=== PATIENT | female | born 1935 | race Caucasian/White ===

== ENCOUNTER 2020-07-13 00:40 | Inpatient (IN) | payer OTHER ==
[~2020-07-13] VITALS: Ht 154.9 cm; Wt 75.7 kg
--- NOTE | 2020-07-13 00:45 | NUR ---
PT BIBRA FROM HOME C/O LEFT SIDE CHEST PAIN RADIATING TO L UPPER EXT AND L JAW ARMATURE REWINDER. NOTED HYPERTENSION, MD AWARE. PT ALSO C/O WEAKNESS. PT AWAKE, JAPANESE SPEAKING. RESPIRATIONS EVEN AND UNLABORED. NO ACUTE DISTRESS NOTED AT THIS TIME. PLACED IN GOWN AND ON CONTINUOUS SWISS TYPE SCREW MACHINE OPERATOR AND PULSE OX, WILL CONTINUE TO MONITOR
--- NOTE | 2020-07-13 00:47 | NUR ---
MD AT BEDSIDE FOR EVALUATION
--- NOTE | 2020-07-13 00:55 | NUR ---
IV INITIATED LAC 18G. LABS DRAWN FROM SITE. CLOUD OPERATIONS ENGINEER AT BEDSIDE FOR COLLECTION. IV INTACT AND PATENT, PLACED ON SALINE LOCK
[2020-07-13] MEDS ORDERED: ASPIRIN 325 MG TABLET PO ONE (01:00)
[2020-07-13] MEDS ORDERED: hydrALAZINE HCL IV 20 MG VIAL IV ONE (01:00)
--- NOTE | 2020-07-13 01:08 | NUR ---
PT AMBULATORY TO RESTROOM WITH STEADY GAIT
[2020-07-13] MEDS ORDERED: ASPIRIN 325 MG TABLET ONE (01:09)
[2020-07-13] MEDS ORDERED: hydrALAZINE HCL IV 20 MG VIAL ONE (01:09)
--- NOTE | 2020-07-13 01:19 | NUR ---
PER VERBAL MD ORDER, WILL HOLD HYDRALAZINE 10MG IV AT THIS TIME
[2020-07-13 01:35] LABS: CALCIUM, SERUM 9.2 mg/dL (8.5-10.1); CREATININE 0.9 mg/dL (0.6-1.3); POTASSIUM 3.6 mmol/L (3.5-5.1)
[2020-07-13 01:36] LABS: BASOPHILS # (AUTO) 0.3 /CMM (0.0-0.2); BASOPHILS % (AUTO) 2.8 % (0.0-2.0); EOSINOPHILS % (AUTO) 1.6 % (0.0-6.0); HEMATOCRIT 43 % (33-45); HEMOGLOBIN 14.3 g/dL (11.5-14.8); LYMPHOCYTES # (AUTO) 1.4 /CMM (0.8-4.8); LYMPHOCYTES % (AUTO) 15.4 % (20.0-44.0); MEAN CORPUSCULAR HGB CONC 34 g/dl (31.0-36.0); MEAN CORPUSCULAR VOLUME 82 fL (82-100); MONOCYTES # (AUTO) 0.6 /CMM (0.1-1.30); MONOCYTES % (AUTO) 6.4 % (2.0-12.0); NEUTROPHILS # (AUTO) 6.8 /CMM (1.8-8.9); NEUTROPHILS % (AUTO) 73.8 % (43.0-81.0); PLATELET COUNT (AUTO) 204 /CMM (150-450); RED BLOOD CELL COUNT(AUTO) 5.18 MIL/uL (4.0-5.2); WHITE BLOOD COUNT (AUTO) 9.2 K/uL (4.3-11.0)
[2020-07-13 01:49] LABS: ALBUMIN 3.9 g/dL (3.4-5.0); BILIRUBIN,DIRECT 0.1 mg/dL (0.0-0.2); BILIRUBIN,TOTAL 0.5 mg/dL (0.2-1.0); TOTAL PROTEIN, SERUM 8.1 g/dL (6.4-8.2)
--- NOTE | 2020-07-13 02:31 | NUR ---
REPORT GIVEN TO ERIKA SURESH FOR MEGA
[2020-07-13] MEDS ORDERED: MAG HYDROX/AL HYDROX/SIMETH 30 ML UDC PO PRN (04:00)
[2020-07-13] MEDS ORDERED: ACETAMINOPHEN 325 MG TABLET PO PRN (04:00)
[2020-07-13] MEDS ORDERED: MAGNESIUM HYDROXIDE 30 ML UDC PO PRN (04:00)
[2020-07-13] MEDS ORDERED: Z GUARD REMEDY 2 OZ OINT TP PRN (04:00)
[2020-07-13] MEDS ORDERED: MORPHINE SULFATE INJ 2 MG/ML DISP.SYRIN IV PRN (04:00)
[2020-07-13] MEDS ORDERED: HYDROCODONE/APAP 5/325MG TABLET PO PRN (04:00)
[2020-07-13] MEDS ORDERED: ENOXAPARIN SODIUM 80 MG/0.8 ML DISP.SYRIN SQ ONE (04:00)
[2020-07-13] MEDS ORDERED: NITROGLYCERIN 0.4 MG/TAB BOTTLE SL PRN (04:00)
[2020-07-13] MEDS ORDERED: ZOLPIDEM TARTRATE 5 MG TABLET PO PRN (04:00)
[2020-07-13] MEDS ORDERED: ONDANSETRON HCL/PF 4 MG/2 ML VIAL IVP PRN (04:00)
[2020-07-13 04:05] VITALS: BP 161/83
--- NOTE | 2020-07-13 04:09 | NUR ---
PT TRANSFERRED PER ACLS PROTOCOL
--- NOTE | 2020-07-13 04:10 | NUR ---
SAVE ALL OPERATORSAP BUSINESS OBJECTS CONSULTANT NOTES RECEIVED REPORT FROM NIYAH JAMES. PATIENT TRANSFERRED FROM ER TO TELE; PATIENT ABLE TO AMBULATE FROM [facility] TO BED. PATIENT A/OX4; ICELANDIC SPEAKING; ABLE TO MAKE NEEDS KNOWN. ON ROOM AIR AND TOLERATING WELL WITH NO SOB. EXTERNAL STEAM SETTER READS NSR AND HR AT 70'S. IV LAC #18 S/L; PATENT AND INTACT. PATIENT DENIES PAIN AT THIS TIME. ALL BELONGINGS ACCOUNTED FOR AND RN SIGNED PATIENT BELONGINGS CHECKLIST. RN ORIENTED PATIENT TO ROOM, UNIT, AND STAFF. ALL SAFETY MEASURES IN PLACE: BED IN LOWEST LOCKED POSITION, CALL LIGHT WITHIN EASY REACH, BED ALARMS ON, SIDERAILS UPX2. PATIENT MEDICALLY STABLE AT THIS TIME.
[2020-07-13] MEDS ORDERED: LOSA1TAB39 PO (06:17)
[2020-07-13] MEDS ORDERED: METO100T14 PO (06:17)
--- NOTE | 2020-07-13 06:37 | NUR ---
BEAM DYER OPERATOR CLOSING NOTES PATIENT RESTING IN BED A/OX4; ROMANIAN SPEAKING; ABLE TO MAKE NEEDS KNOWN. ON ROOM AIR AND TOLERATING WELL WITH NO SOB. EXTERNAL INCOME TAX ADMINISTRATOR READS NSR AND HR AT 70'S. IV LAC #18 S/L; PATENT AND INTACT. PATIENT DENIES PAIN AT THIS TIME. ALL SAFETY MEASURES IN PLACE: BED IN LOWEST LOCKED POSITION, CALL LIGHT WITHIN EASY REACH, BED ALARMS ON, SIDERAILS UPX2. PATIENT MEDICALLY STABLE AT THIS TIME. RECONCILED HOME MEDICATIONS WITH PATIENT'S DAUGHTER. WILL ENDORSE MEGA TO ONCOMING MORNING RN.
--- NOTE | 2020-07-13 07:43 | NUR ---
ECHOCARDIOGRAPHY RADIOLOGY TECHNOLOGIST OPENING NOTES PATIENT RESTING IN BED A/OX4; CZECH SPEAKING; ABLE TO MAKE NEEDS KNOWN. ON ROOM AIR AND TOLERATING WELL WITH NO SOB. EXTERNAL FIELD SALES MANAGER READS NSR AND HR AT 70'S. IV LAC #18 S/L; PATENT AND INTACT. PATIENT DENIES PAIN AT THIS TIME. ALL SAFETY MEASURES IN PLACE: BED IN LOWEST LOCKED POSITION, CALL LIGHT WITHIN EASY REACH, BED ALARMS ON, SIDERAILS UPX2. PATIENT MEDICALLY STABLE AT THIS TIME.
[2020-07-13 08:00] VITALS: BP 137/69
[2020-07-13] MEDS ORDERED: ATEN25TA PO (08:14)
[2020-07-13] MEDS ORDERED: METF-440 PO (08:14)
[2020-07-13] MEDS ORDERED: SIMV-46 PO (08:14)
[2020-07-13] MEDS ORDERED: METO-358 PO (08:14)
[2020-07-13] MEDS ORDERED: ASPI-1169 PO (08:29)
[2020-07-13] MEDS ORDERED: ENOXAPARIN SODIUM 80 MG/0.8 ML DISP.SYRIN SQ SCH (09:00)
[2020-07-13] MEDS: LOSARTAN/HCTZ 50-12.5MG/ 1 EA TABLET PO SCH (09:13)
[2020-07-13] MEDS: ASPIRIN 81 MG TAB.CHEW PO SCH (09:13)
--- NOTE | 2020-07-13 10:20 | NUR ---
RN NOTES PATIENT SEEN BY DR. FLEMING W/ ORDER FOR CT ANGIO PROCEDURE; PASHTO-SPEAKING STAFF UTILIZED FOR TRANSLATION. CONSENT FORMS SIGNED BY PATIENT. PER RADIOLOGY, WILL TAKE PATIENT AROUND NOON/AFTER LUNCH.
[2020-07-13] MEDS: METOPROLOL TARTRATE 50 MG TABLET PO SCH ×3 (12:13→23:13)
[2020-07-13] MEDS ORDERED: IOHEXOL-350 100 ML VIAL IV ONE (12:45)
[2020-07-13] MEDS ORDERED: IV NS 0.9% 250 ML IV ONE (12:45)
--- NOTE | 2020-07-13 13:00 | NUR ---
RN NOTES PATIENT WAS TAKEN FOR CT ANGIO PROCEDURE VIA WHEELCHAIR, ACCOMPANIED BY 2 RADIOLOGY TECHS.
[2020-07-13] MEDS ORDERED: METOPROLOL TARTRATE INJ 5 MG/5 ML AMPUL ONE (13:12)
--- NOTE | 2020-07-13 13:26 | NUR ---
CTA RN NOTES PT STABLE S/P CTA , NO REACTION NOTED , VSS , DENIES SOB ,CHEST PAIN AND DISCOMFORT , PIV PATENT AND INTACT V PACING 70 ON THE MONITOR , AFEBRILE , WILL CONTINUE TO MONITOR .
--- NOTE | 2020-07-13 13:45 | NUR ---
RN NOTES PATIENT RETURNED FROM CT ANGIO PROCEDURE VIA WHEELCHAIR, ACCOMPANIED BY 2 RADIOLOGY TECHS. PATIENT SITTING UP AT EDGE OF BED EATING LATE LUNCH. INFORMED BY HARBOUR MASTER TO HOLD METFORMIN X48 HRS IF PATIENT IS ON METFORMIN.
[2020-07-13 16:00] VITALS: BP 125/76
[2020-07-13] MEDS ORDERED: SIMVASTATIN 20 MG TABLET PO SCH ×2 (18:00→22:00)
--- NOTE | 2020-07-13 18:56 | NUR ---
CIVIL PREPAREDNESS COORDINATOR CLOSING NOTES PATIENT RESTING IN BED, AWAKE AND VERBALLY RESPONSIVE. A/OX4, UPPER SORBIAN SPEAKING, ABLE TO MAKE NEEDS KNOWN. BREATHING EVEN AND UNLABORED, CONTINUES ON ROOM AIR, NO SOB NOTED. ON TELE-MONITORING READING OF SR, V-PACING, AT MID 70'S. IV LINE ON LAC #18 PATENT AND INTACT. ABLE TO AMBULATE TO BATHROOM W/ ASSIST. SAFETY MEASURES MAINTAINED. WILL ENDORSE TO SCLEROSCOPE TESTER RN FOR MEGA.
--- NOTE | 2020-07-13 19:45 | NUR ---
TELE/RN OPENING NOTE RECEIVED PATIENT RESTING IN BED. ALERT AND ORIENTED X 3. PRIMARILY CAMBODIAN SPEAKING. NO COMPLAINTS OF PAIN AT THIS TIME. CONTINUES ON ROOM AIR WITH NO SIGNS OR SYMPTOMS OF RESPIRATORY DISTRESS NOTED. IV ACCESS TO LEFT AC #18 INTACT AND PATENT. NO COMPLAINTS OF SOB OR CHEST PAIN NOTED. CALL LIGHT WITHIN REACH. ASPIRATION, FALL AND SAFETY PRECAUTIONS MAINTAINED. WILL CONTINUE TO MONITOR.
[2020-07-13 20:00] VITALS: BP 147/79
[2020-07-13] MEDS: ENOXAPARIN SODIUM 80 MG/0.8 ML DISP.SYRIN SQ SCH ×2 (20:07→20:10)
--- NOTE | 2020-07-13 20:10 | NUR ---
TELE/RN NOTE PATIENT RECEIVED DOSE OF ENOXAPARIN @ 1999. MD ORDER IN PLACE IS FOR q12 ENOXAPARIN.
[2020-07-14] VITALS: BP 135/68
[2020-07-14 04:00] VITALS: BP_SYST 114; BP_SYST 116; BP_DIAS 46; BP_DIAS 77
[2020-07-14] MEDS: METOPROLOL TARTRATE 50 MG TABLET PO SCH ×2 (05:52→11:51)
[2020-07-14 06:57] LABS: BASOPHILS % (AUTO) 0.8 % (0.0-2.0); EOSINOPHILS % (AUTO) 2.2 % (0.0-6.0); HEMATOCRIT 39 % (33-45); HEMOGLOBIN 13.2 g/dL (11.5-14.8); LYMPHOCYTES # (AUTO) 1.4 /CMM (0.8-4.8); LYMPHOCYTES % (AUTO) 25.3 % (20.0-44.0); MEAN CORPUSCULAR HGB CONC 34 g/dl (31.0-36.0); MEAN CORPUSCULAR VOLUME 83 fL (82-100); MONOCYTES # (AUTO) 0.5 /CMM (0.1-1.30); MONOCYTES % (AUTO) 9.4 % (2.0-12.0); NEUTROPHILS # (AUTO) 3.5 /CMM (1.8-8.9); NEUTROPHILS % (AUTO) 62.3 % (43.0-81.0); PLATELET COUNT (AUTO) 159 /CMM (150-450); RED BLOOD CELL COUNT(AUTO) 4.74 MIL/uL (4.0-5.2); WHITE BLOOD COUNT (AUTO) 5.6 K/uL (4.3-11.0)
--- NOTE | 2020-07-14 07:13 | NUR ---
J2EE CONSULTANT OPENING NOTES PATIENT RESTING IN BED, AWAKE AND VERBALLY RESPONSIVE. A/OX4, INDONESIAN SPEAKING, ABLE TO MAKE NEEDS KNOWN. BREATHING EVEN AND UNLABORED, ON ROOM AIR, NO RESPIRATORY DISTRESS. NO COMPLAINT OF PAIN AT THIS TIME. ON TELE-MONITORING READING OF SR, V-PACING, AT 70'S. IV LINE ON LAC #18 PATENT AND INTACT. SAFETY MEASURES IN PLACE. WILL CONTINUE TO MONITOR.
[2020-07-14 07:14] LABS: CALCIUM, SERUM 9.3 mg/dL (8.5-10.1); MAGNESIUM 2.2 mg/dL (1.8-2.4); PHOSPHORUS 3.5 mg/dL (2.5-4.9); POTASSIUM 3.8 mmol/L (3.5-5.1)
--- NOTE | 2020-07-14 07:15 | NUR ---
TELE/RN CLOSING NOTE PATIENT CURRENTLY RESTING IN BED. ALERT AND ORIENTED X 3. LATVIAN SPEAKING. NO COMPLAINTS OF PAIN THIS SHIFT. IV ACCESS TO LEFT AC #18G INTACT AND PATENT. EKG DONE THIS AM AND IN CHART. CALL LIGHT WITHIN REACH. ASPIRATION, FALL AND SAFETY PRECAUTIONS MAINTAINED. WILL ENDORSE PLAN OF CARE TO ONCOMING SHIFT.
[2020-07-14 08:00] VITALS: BP 175/72
[2020-07-14 08:02] LABS: THYROID STIMULATING HORMONE 2.909 uIU/mL (0.358-3.74)
[2020-07-14] MEDS: LOSARTAN/HCTZ 50-12.5MG/ 1 EA TABLET PO SCH (08:17)
[2020-07-14] MEDS: ASPIRIN 81 MG TAB.CHEW PO SCH (08:18)
[2020-07-14] MEDS: ENOXAPARIN SODIUM 80 MG/0.8 ML DISP.SYRIN SQ SCH (08:20)
[2020-07-14] MEDS ORDERED: HYDR-4077 PO (09:18)
[2020-07-14 11:51] VITALS: BP 143/74
--- NOTE | 2020-07-14 13:29 | NUR ---
BRICK OFFBEARER NOTES PATIENT SEEN BY DR. MCDOWELL W/ ORDER FOR DISCHARGE TO HOME; CLEARED BY CARDIOLOGY. PATIENT IS A/O X3, VERBALLY RESPONSIVE, ABLE TO MAKE NEEDS KNOWN AND UNDERSTAND CONCEPTS. DISCHARGE INSTRUCTIONS AND EDUCATION PROVIDED TO PATIENT AND FAMILY VIA FRISIAN-SPEAKING STAFF. DISCHARGE FORM AND BELONGINGS LIST FORM SIGNED BY PATIENT; ALL BELONGINGS ACCOUNTED FOR. IV LINE AND NAME ARMBAND REMOVED. NO SKIN ISSUES NOTED. PATIENT WAS ACCOMPANIED TO THE LOBBY BY JAKE PAUL, VIA WHEELCHAIR AND PICKED UP BY ANJELICA VIA PRIVATE CAR. CHARGE NURSE AND MD AWARE OF DISCHARGE.
== END 2020-07-14 13:30 | disposition home or self-care (01) | DRG 282 ==
LOC: ER 01:00 → TELE 03:49
PROVIDERS: ADMIT Nurse Practitioner Acute Care; ATTEND Nurse Practitioner Acute Care
DX: I21.4 Non-ST elevation (NSTEMI) myocardial infarction (principal); I16.0 Hypertensive urgency; I25.10 Atherosclerotic heart disease of native coronary artery without angina pectoris; I25.2 Old myocardial infarction; Z95.0 Presence of cardiac pacemaker; I10 Essential (primary) hypertension; E78.5 Hyperlipidemia, unspecified; E11.9 Type 2 diabetes mellitus without complications; Z95.1 Presence of aortocoronary bypass graft; E66.9 Obesity, unspecified; Z68.31 Body mass index [BMI] 31.0-31.9, adult; Z20.822 Contact with and (suspected) exposure to COVID-19
CPT/HCPCS: 36415; 71045-TC; 75574; 80048-TC; 80061-TC; 80076-TC; 83735-TC; 83880; 84100-TC; 84443-TC; 84484-TC; 85025-TC; 85730-TC; 87081-TC; 93307-TC; C9803; G0378; J0360; J1650; J3490; J7050; Q9967